=== PATIENT | male | born 1990 | race African-American/Black ===

== ENCOUNTER 2017-02-04 16:51 | Emergency (ER) | payer OTHER ==
[~2017-02-04] VITALS: Ht 157.5 cm; Wt 68.0 kg
[2017-02-04 16:58] VITALS: Ht 157.5 cm; Wt 68.0 kg
[2017-02-04] MEDS ORDERED: CEFTRIAXONE 1 GM/50 ML (PMX) 50 ML IVPB ONE (18:30)
[2017-02-04] MEDS ORDERED: VANCOMYCIN 1 GM (PMX) 250 ML IVPB SCH (18:30)
[2017-02-04 18:40] LABS: ADD SCAN DIFF NO
[2017-02-04 18:43] LABS: BASOPHILS % 0.4 % (0.0-2.0); EOSINOPHILS # 0.9 10^3/ul (0.0-0.5); EOSINOPHILS % 8.7 % (0.0-7.0); HEMATOCRIT 49.5 % (42.0-52.0); HEMOGLOBIN 16.3 g/dl (14.0-18.0); LYMPHOCYTES # 1.8 10^3/ul (0.8-2.9); LYMPHOCYTES % 16.9 % (15.0-51.0); MEAN CORPUSCULAR HEMOGLOBIN 28.6 pg (29.0-33.0); MEAN CORPUSCULAR HGB CONC 32.9 g/dl (32.0-37.0); MEAN PLATELET VOLUME 10.9 fl (7.4-10.4); MONOCYTES % 8.9 % (0.0-11.0); NEUTROPHILS % 64.8 % (39.0-77.0); PLATELET COUNT 283 10^3/UL (140-415); RED BLOOD COUNT 5.69 10^6/ul (4.70-6.10); RED CELL DISTRIBUTION WIDTH 13.4 % (11.5-14.5); WHITE BLOOD COUNT 10.7 10^3/ul (4.8-10.8)
[2017-02-04 18:53] LABS: INR 1.03; PROTIME 13.5 Sec (12.2-14.2); PT RATIO 1.1
[2017-02-04 18:54] LABS: ALBUMIN 4.9 g/dl (3.3-4.9); CHLORIDE 100 mmol/L (97-110); PARTIAL THROMBOPLASTIN TIME 30.9 Sec (25.0-35.0); SODIUM 141 mmol/L (135-144)
[2017-02-04 18:55] LABS: POTASSIUM 4.2 mmol/L (3.5-5.1)
[2017-02-04 18:57] LABS: ALANINE AMINOTRANSFERASE 34 IU/L (13-69); ALBUMIN/GLOBULIN RATIO 1.04; ALKALINE PHOSPHATASE 98 IU/L (42-121); ANION GAP 15 (8-16); ASPARTATE AMINO TRANSFERASE 33 IU/L (15-46); BILIRUBIN,INDIRECT 1.1 mg/dl (0-1.1); BILIRUBIN,TOTAL 1.1 mg/dl (0.2-1.3); BLOOD UREA NITROGEN 14 mg/dl (7-20); CARBON DIOXIDE 30 mmol/L (21-31); GLUCOSE 91 mg/dl (70-220); TOTAL PROTEIN 9.6 g/dl (6.1-8.1)
[2017-02-04 19:10] LABS: TROPONIN-I < 0.012 ng/ml (0.00-0.12)
--- NOTE | 2017-02-04 20:18 | RADRPT ---
PROCEDURE: XR finger. CLINICAL INDICATION: Cellulitis and swelling of the right ring finger TECHNIQUE: PA, oblique and lateral views of the right fourth finger were obtained. COMPARISON: None available. FINDINGS: Mineralization is within normal limits. No fracture or osseous lesion is identified. Joint spaces are preserved. Diffuse nonspecific soft tissue swelling is present. There is no evidence of subcut aneous gas. No radiopaque foreign body is present. RPTAT:HJJR IMPRESSION: Nonspecific soft tissue swelling without associated osseous abnormality of the right fourth finger. Physician Debbie Date Time Electronically viewed and signed by Physician Debbie on 02/04/2017 20:18 JR/
--- NOTE | 2017-02-04 20:44 | ERD ---
ER Documentation Chief Complaint Date/Time DATE: 02/04/17 TIME: 20:41 Chief Complaint RIGHT 4TH DIGIT SWELLING / REDNESS ONSET LAst HPI This is a 27-year-old male who presents to the emergency room for evaluation of the right fourth digit pain and swelling. The patient states that the pain and swelling started approximately 8 days ago. He states that he came to the ER today for evaluation as his finger has not gotten better. He denies any fevers associated with this, and denies any numbness and tingling in the finger. He came to the emergency room today for evaluation. ROS All systems reviewed and are negative except as per history of present illness. Medications Home Meds No Active Prescriptions or Reported Meds Allergies Allergies: Coded Allergies: No Known Allergy (Unverified , 02/04/17) PMhx/Soc Medical and Surgical Hx: pt denies Surgical Hx History of Surgery: No (NEEDED TO GET A GROWTH REMOVED FROM NOSE ) Anesthesia Reaction: No Hx Neurological Disorder: No Hx Respiratory Disorders: No Hx Cardiac Disorders: No Hx Psychiatric Problems: No Hx Miscellaneous Medical Probl: Yes (DERMITITIS) Hx Alcohol Use: No Hx Substance Use: No Hx Tobacco Use: No Smoking Status: Never smoker Physical Exam Vitals Vital Signs Date Time Temp Pulse Resp B/P Pulse Ox O2 Delivery O2 Flow Rate FiO2 02/04/17 19:24 98.3 68 20 149/91 Room Air 02/04/17 16:58 98.1 75 20 125/68 99 Physical Exam INITIAL VITAL SIGNS: Reviewed by me GENERAL: The patient is well developed and appropriate for usual state of health in no apparent distress HEENT: Pupils equal, round, and reactive to light. EOMI. There is no scleral icterus. NECK: C-spine is soft and supple, there is no meningismus. There is no cervical lymphadenopathy. LUNGS: Clear to auscultation bilaterally. There are no rales, wheezes or rhonchi. HEART: Regular rate and rhythm, no murmurs, clicks, rubs or gallops. ABDOMEN: Soft, non-tender, non-distended. There are bowel sounds in all four quadrants. No rebound or guarding. EXTREMITIES: Right fourth digit soft tissue swelling, which is circumferential, erythema, no skin sloughing. Cap refill less than 2 seconds distally NEUROLOGICAL: The patient moves all four extremities with 5/5 strength. Cranial nerves II - XII are intact. Normal gait. Alert and oriented SKIN: There is no apparent rash or petechiae. HEME/LYMPHATIC: There is no evidence of excessive bruising or lymphedema. PSYCHIATRIC: The patient does not appear anxious or depressed. Result Diagram: 02/04/17182902/04/171829 Results 24 hrs Laboratory Tests Test 02/04/17 18:30 White Blood Count 10.710^3/ul Red Blood Count 5.6910^6/ul Hemoglobin 16.3g/dl Hematocrit 49.5% Mean Corpuscular Volume 87.0fl Mean Corpuscular Hemoglobin 28.6pg Mean Corpuscular Hemoglobin Concent 32.9g/dl Red Cell Distribution Width 13.4% Platelet Count 61751^3/UL Mean Platelet Volume 10.9fl Neutrophils % 64.8% Lymphocytes % 16.9% Monocytes % 8.9% Eosinophils % 8.7% Basophils % 0.4% Nucleated Red Blood Cells % 0.0/100WBC Neutrophils # 7.010^3/ul Lymphocytes # 1.810^3/ul Monocytes # 1.010^3/ul Eosinophils # 0.910^3/ul Basophils # 0.010^3/ul Nucleated Red Blood Cells # 0.010^3/ul Prothrombin Time 13.5Sec Prothrombin Time Ratio 1.1 INR International Normalized Ratio 1.03 Activated Partial Thromboplast Time 30.9Sec Sodium Level 141mmol/L Potassium Level 4.2mmol/L Chloride Level 100mmol/L Carbon Dioxide Level 30mmol/L Anion Gap 15 Blood Urea Nitrogen 14mg/dl Creatinine 0.80mg/dl Glucose Level 91mg/dl Lactic Acid Level 1.3mmol/L Calcium Level 10.0mg/dl Total Bilirubin 1.1mg/dl Direct Bilirubin 0.00mg/dl Indirect Bilirubin 1.1mg/dl Aspartate Amino Transf (AST/SGOT) 33IU/L Alanine Aminotransferase (ALT/SGPT) 34IU/L Alkaline Phosphatase 98IU/L Troponin I < 0.012ng/ml Total Protein 9.6g/dl Albumin 4.9g/dl Globulin 4.70g/dl Albumin/Globulin Ratio 1.04 Current Medications Medications (Trade) Dose Ordered Sig/Parminder Route PRN Reason Start Time Stop Time Status Last Admin Dose Admin Vancomycin HCl 250 ml @ 125 mls/hr ONCE IVPB 02/04/17 18:30 02/04/17 20:29 DC 02/04/17 19:21 Ceftriaxone Sodium (Rocephin) 50 ml @ 100 mls/hr ONCE ONCE IVPB 02/04/17 18:30 02/04/17 18:59 DC 02/04/17 19:21 Procedures/MDM X-ray Hand 3V interpreted by me: Scaphoid: [Normal] Bones: Soft tissue swelling Joints: [No dislocation] Foreign body: [None] This 27-year-old male presents to the emergency room for evaluation of pain in his right fourth digit. When I evaluated this patient he did not appear to have circumferential cellulitis of the right fourth digit. He had sensation in his finger, and had a Refill less than 2 seconds distally in his finger. The patient did have a septic workup. He does not have a fever, no leukocytosis, no lactic acidosis. X-ray does not reveal any underlying bone infection. This patient was given vancomycin and Rocephin after blood cultures were obtained. The patient will be discharged home with a prescription for Bactrim, and Keflex. I advised him to return to the emergency room on February 06 for a reevaluation. I also advised him that if he were to have any significant pain, numbness or tingling in the finger he needs to return immediately to the ER for further evaluation. Patient did verbalize understanding. The patient will be discharged home at this time. Departure Diagnosis: Primary Impression: Cellulitis of right finger Condition: PINO Rodriguez DO Feb 04, 2017 20:44
[2017-02-04] MEDS ORDERED: BACTDS PO (20:45)
[2017-02-04] MEDS ORDERED: IBUP800T25 PO (20:45)
[2017-02-04] MEDS ORDERED: CEPH-443 PO (20:45)
[2017-02-04 23:41] VITALS: BP 137/84; PULSE 84; RESP 20; TEMP 97.9
== END 2017-02-04 23:41 | disposition home or self-care (01) ==
LOC: E/R 16:51
DX: L03.011 Cellulitis of right finger (principal)
CPT/HCPCS: 36415; 73140; 80053; 83605; 84484; 85025; 85610; 85730; 87040; 87086; 93005; 96365; 96368; J0696; J3370; Z7502